=== PATIENT | male | born 1970 | race Caucasian/White ===

== ENCOUNTER → 2018-02-02 | Emergency (ER) | payer OTHER ==
[~2018-02-02] VITALS: Ht 167.6 cm; Wt 77.1 kg
[~2018-02-02] MED LIST: CEFADROXIL500 MG PO; KETO10TA2 PO
== END | disposition left against medical advice (07) ==
LOC: ER 21:18
DX: Z53.20 Procedure and treatment not carried out because of patient's decision for unspecified reasons (principal)

== ENCOUNTER 2018-12-31 10:28 | Emergency (ER) | payer OTHER ==
[~2018-12-31] VITALS: Ht 170.2 cm; Wt 77.1 kg
[2018-12-31] MEDS ORDERED: FLAGYL500MG PO (15:31)
[2018-12-31] MEDS ORDERED: INTESTINEX680 M1 PO (15:31)
[2018-12-31] MEDS ORDERED: CIPRO500 MG PO (15:31)
[2018-12-31] MEDS ORDERED: ULTRACET PO (15:31)
== END 2018-12-31 17:38 | disposition home or self-care (01) ==
LOC: ER 10:28
DX: K57.92 Diverticulitis of intestine, part unspecified, without perforation or abscess without bleeding (principal)

== ENCOUNTER 2021-10-08 07:23 | Inpatient (IN) | payer OTHER ==
[~2021-10-08] VITALS: Ht 167.6 cm; Wt 71.2 kg
[~2021-10-08 07:23] MED LIST changes: +CIPRO500 MG PO; +FLAGYL500MG PO; +INTESTINEX680 M1 PO; +ULTRACET PO
--- NOTE | 2021-10-08 07:39 | NUR ---
SE RECIBE MASCULINO DE 50 ANOS ALERTA Y ORIENTADO X3. REFIERE DESDE LA MADRUGADA DOLOR PELVICO EN 8 EN ESCALA DE 10. SE MIDEN S/V Y SE UBICA EN [place] PENDIENTE A EVALUACION MEDICA.
--- NOTE | 2021-10-08 09:14 | NUR ---
PTE EVALUADO POR LA DRA WILKINS QUIEN ORDENA EL [place]. MS L BATES ORIENTA SOBRE EL TX ORDENADO, LO CUAL REFIERE ENTENDER Y REALIZA PRUEBAS DE LABORATORIO TRISTIN ORDEN MEDICA Y SIGUIENDO MEDIDAS ASEPTICAS. MEDICAMENTOS ADMINISTRADOS POR MR Mena DAVID. CT ABD-PELVICO PO NOTIFICADO A PERSONAL DE TURNO.
--- NOTE | 2021-10-08 16:06 | NUR ---
SE RECIBE MASCULINO ALERTA Y ORIETNTADO X 3 ESFERAS EN CAMA. PRESENTANDO BUEN PATRON RESPIRATORIO. RECIBIENDO IV'S 0.9NSS BAJANDO A 150ML/HR AREA DE VENOPUNCION LUCIA DE EDEMA Y ERITEMA. PENDIENTE CONSULTA CON . SE MANTIENE EN OBSERVACION.
== END 2021-10-13 19:00 | disposition home or self-care (01) | DRG 392 ==
LOC: ER 07:23 → MEDJ 16:24
PROVIDERS: ADMIT Internal Medicine; ATTEND Internal Medicine
PROC: BW21YZZ Computerized Tomography (CT Scan) of Abdomen and Pelvis using Other Contrast (ICD-10-PCS; principal; 2021-10-08)
DX: K57.32 Diverticulitis of large intestine without perforation or abscess without bleeding (principal); K59.09 Other constipation; I10 Essential (primary) hypertension

== ENCOUNTER 2024-04-04 19:32 | Emergency (ER) | payer OTHER ==
[~2024-04-04] VITALS: Ht 167.6 cm; Wt 76.7 kg
[2024-04-04] MEDS ORDERED: COZAAR25 MG PO (19:41)
[2024-04-04] MEDS ORDERED: KETOROLAC TROMETHAMINE 30 MG VIAL IV ONE (20:00)
[2024-04-04] MEDS ORDERED: KETOROLAC TROMETHAMINE 30 MG VIAL ONE (21:09)
[2024-04-04] MEDS ORDERED: BARIUM SULFATE 450 ML ORAL.SUSP PO ONE (21:12)
[2024-04-04 21:31] LABS: HEMATOCRIT 45.9 % (39.0-48.0); HEMOGLOBIN 16.1 g/dL (13-16.00); MEAN CELL VOLUME 88.4 fL (80.0-100.00); MEAN CORPUSCULAR HGB CONC 35.1 g/dl (32.0-36.0); PLATELET COUNT 205 K/uL (150-450); RED BLOOD COUNT 5.19 M/uL (4.00-6.00); RED CELL DISTRIBUTION WIDTH 13.8 % (11.5-14.5)
[2024-04-04 23:07] LABS: URINE APPEARANCE Clear; URINE BILIRRUBIN Negative (NEGATIVE); URINE BLOOD Negative; URINE COLOR Yellow; URINE GLUCOSE Negative (NEGATIVE); URINE KETONE Negative (NEGATIVE); URINE LEUKOCYTE Negative; URINE NITRATE Negative; URINE PROTEIN Negative (NEGATIVE); URINE UROBILINOGEN 0.2 E.U./dl
[2024-04-04 23:12] LABS: URINE RBC 5.7 uL (0.0-20.8); URINE WBC 3.6 uL (0.0-23.2)
[2024-04-04 23:16] LABS: URINE BACTERIA 2.4 uL (0.0-1933); URINE CAST 0.29 uL (0.0-1.40)
[2024-04-04 23:22] LABS: CALCIUM 9.2 mg/dL (8.5-10.1); GFR 78.78; POTASSIUM 4.13 mEq/L (3.5-5.1)
[2024-04-05] MEDS ORDERED: CIPRO500 MG PO (02:40)
[2024-04-05] MEDS ORDERED: METRONIDAZOLE500 MG PO (02:40)
[2024-04-05] MEDS ORDERED: LEVSIN/SL0.125 MG SL (02:40)
[2024-04-05] MEDS ORDERED: INTESTINEX680 M2 PO (02:40)
== END 2024-04-05 03:04 ==
LOC: ER 19:35
PROVIDERS: Emergency Medicine
DX: K57.32 Diverticulitis of large intestine without perforation or abscess without bleeding (principal); I10 Essential (primary) hypertension

== ENCOUNTER 2024-11-07 11:46 | Emergency (ER) | payer OTHER ==
[~2024-11-07] VITALS: Ht 167.6 cm; Wt 74.8 kg
[~2024-11-07 11:46] MED LIST changes: +COZAAR25 MG PO; +INTESTINEX680 M2 PO; +LEVSIN/SL0.125 MG SL; +METRONIDAZOLE500 MG PO
[2024-11-07 12:36] VITALS: BP 118/73; O2SAT 98
[2024-11-07] MEDS ORDERED: LIDOCAINE 2% IJ ONE (14:30)
== END 2024-11-07 16:00 | disposition home or self-care (01) ==
LOC: ER 11:46
DX: M70.22 Olecranon bursitis, left elbow (principal)